=== PATIENT | male | born 1965 | race Caucasian/White ===

== ENCOUNTER 2018-08-08 21:24 | Emergency (ER) | payer OTHER ==
[2018-08-08] MEDS ORDERED: KETOROLAC 30 MG/ML INJ ONE (22:15)
[2018-08-08] MEDS ORDERED: CLINDAMYCIN 900MG/D5W 900 MG/50 ML IVPB IV ONE (22:16)
[2018-08-08] MEDS ORDERED: LIDOCAINE 1% MPF 5 ML VIAL ONE (22:16)
--- NOTE | 2018-08-08 23:25 | ER ---
Nurse's Notes [facility] Name: Markus Foy Age: 52 yrs Sex: Male : 1965 Arrival Date: 08/08/2018 Time: 21:25 Bed 5 Private MD: Diagnosis: Right knee abscess with surrounding cellulitis Presentation: 08/08 21:43 Presenting complaint: Patient states: wound to right knee. pt seen in [facility] ak1 and instructed to come to ER for possible IV antibiotics. Transition of care: patient was not received from another setting of care. Onset of symptoms is unknown. Risk Assessment: Do you want to hurt yourself or someone else? Patient reports no desire to harm self or others. Initial Sepsis Screen: Does the patient meet any 2 criteria? No. Patient's initial sepsis screen is negative. Does the patient have a suspected source of infection? No. Patient's initial sepsis screen is negative. Care prior to arrival: None. 21:43 Method Of Arrival: Ambulatory ak1 21:43 Acuity: ZELDA 3 ak1 Triage Assessment: 21:45 General: Appears in no apparent distress. Behavior is calm, cooperative. ak1 21:47 Pain: Complains of pain in right knee. ak1 Historical: - Allergies: 21:45 No Known Allergies; ak1 - Home Meds: 21:45 None [Active]; ak1 - PMHx: 21:45 Cancer; Schizophrenia; ak1 - PSHx: 21:45 Colostomy; port a cath; Bowel resection; ak1 - Immunization history:: Adult Immunizations unknown. - Social history:: Smoking status: Patient uses tobacco products, smokes one-half pack cigarettes per day. - Ebola Screening: : No symptoms or risks identified at this time. - Family history:: not pertinent. - Hospitalizations: : No recent hospitalization is reported. Screenin:46 Abuse screen: Denies threats or abuse. Denies injuries from another. Nutritional ak1 screening: No deficits noted. Tuberculosis screening: No symptoms or risk factors identified. Fall Risk None identified. Assessment: 21:40 General: Appears in no apparent distress. uncomfortable, Behavior is calm, cooperative. bb Pain: Complains of pain in right knee. Neuro: Level of Consciousness is awake, alert, obeys commands, Oriented to person, place, time, situation. Cardiovascular: Heart tones S1 S2 present Capillary refill < 3 seconds Patient's skin is warm and dry. Pulses are all present. Edema is absent. Respiratory: Respiratory effort is even, unlabored, Respiratory pattern is regular. GI: No deficits noted. No signs and/or symptoms were reported involving the gastrointestinal system. Derm: Skin is pink, warm \T\ dry. Wound noted right knee. Musculoskeletal: Circulation, motion, and sensation intact. Reports pain in right knee right knee with area of pus and surrounding erythema. 22:54 Reassessment: No changes from previously documented assessment. Patient is alert, bb oriented x 3, equal unlabored respirations, skin warm/dry/pink. pt awaiting ED provider for I\T\D of right knee. 23:43 Reassessment: Patient and/or family updated on plan of care and expected duration. Pain bb level reassessed. Patient is alert, oriented x 3, equal unlabored respirations, skin warm/dry/pink. bandage to right knee is clean, dry and intact, pt verbalized understanding of and agrees to plan of care discharge instructions given pt ambulated with steady gait to exit. Vital Signs: 21:45 BP 159 / 102; Pulse 90; Resp 18; Temp 98.1; Pulse Ox 99% on R/A; Weight 79.38 kg (R); ak1 Height 6 ft. 0 in. (182.88 cm) (R); Pain 7/10; 22:55 BP 129 / 71; Pulse 89; Resp 16 S; Pulse Ox 100% on R/A; bb 23:41 BP 134 / 68; Pulse 91; Resp 16; Temp 98.1; Pulse Ox 100% on R/A; mw2 21:45 Body Mass Index 23.73 (79.38 kg, 182.88 cm) ak1 ED Course: 21:25 Patient arrived in ED. ds1 21:44 Triage completed. ak1 21:45 Arm band placed on Patient placed in an exam room, on a stretcher, on pulse oximetry, ak1 Patient notified of wait time. 21:46 Patient has correct armband on for positive identification. Placed in gown. Bed in low ak1 position. Call light in reach. Side rails up X 1. Pulse ox on. NIBP on. Door closed. Warm blanket given. 21:47 Jose Brown MD is Attending Physician. wa 22:00 Inserted saline lock: 20 gauge in right forearm, using aseptic technique. Blood bb collected. 22:45 Renuka Sanchez, RN is Primary Nurse. bb 23:20 Assist provider with I \T\ D: of an abscess on right knee Set up I\T\D tray. Performed by tl 1 Jose Brown MD Dressing with Neosporin and 4X4s, tegaderm. 23:23 Kimberlee Burgess MD is Referral Physician. wa 23:42 IV discontinued, intact, bleeding controlled, No redness/swelling at site. Pressure tl1 dressing applied. Administered Medications: 22:20 Drug: Clindamycin 900 mg Route: IVPB; Infused Over: 30 mins; Site: right antecubital; tl1 22:42 Follow up: IV Status: Completed infusion tl1 22:20 Drug: TORadol 30 mg Route: IVP; Infused Over: 2 mins; Site: right antecubital; tl1 23:46 Follow up: Response: No adverse reaction bb Outcome: 23:24 Discharge ordered by . wa 23:46 Discharged to home ambulatory. bb 23:46 Condition: stable 23:46 Discharge instructions given to patient, Instructed on discharge instructions, follow up and referral plans. medication usage, Demonstrated understanding of instructions, follow-up care, medications, Prescriptions given X 1. 23:46 Patient left the ED. bb Signatures: Alley Saenz ds1 Renuka Sanchez, RN RN Eun Heaton RN RN tl1 Willow Barrett RN RN ak1 Jose Brown MD MD ok Amalia Avila 2
--- NOTE | 2018-08-08 23:25 | EDPHYS ---
Physician Documentation [facility] Name: Markus Foy Age: 52 yrs Sex: Male : 1965 Arrival Date: 08/08/2018 Time: 21:25 Bed 5 Private MD: ED Physician Jose Brown HPI: 08/08 23:19 This 52 yrs old Male presents to ER via Ambulatory with complaints of Knee wa Infection - Leg. 23:19 The patient presents with an abscess of the right knee, The patient presents with wa cellulitis of the right knee. Description: The affected area is small, localized, erythematous. Onset: The symptoms/episode began/occurred 3 day(s) ago. Possible cause(s): unknown. Associated signs and symptoms: Pertinent positives: erythema, pain, Pertinent negatives: fever. Modifying factors: the symptoms are alleviated by nothing, the symptoms are aggravated by movement, walking. Severity of symptoms: At their worst the symptoms were moderate, in the emergency department the symptoms are unchanged. The patient has not experienced similar symptoms in the past. The patient has not recently seen a physician. states noted a bump on right knee. picked at it. now swollen and tender. Historical: - Allergies: 21:45 No Known Allergies; ak1 - Home Meds: 21:45 None [Active]; ak1 - PMHx: 21:45 Cancer; Schizophrenia; ak1 - PSHx: 21:45 Colostomy; port a cath; Bowel resection; ak1 - Immunization history:: Adult Immunizations unknown. - Social history:: Smoking status: Patient uses tobacco products, smokes one-half pack cigarettes per day. - Ebola Screening: : No symptoms or risks identified at this time. - Family history:: not pertinent. - Hospitalizations: : No recent hospitalization is reported. ROS: 23:20 Constitutional: Negative for fever, chills, and weight loss, Eyes: Negative for injury, wa pain, redness, and discharge, ENT: Negative for injury, pain, and discharge, Neck: Negative for injury, pain, and swelling, Cardiovascular: Negative for chest pain, palpitations, and edema, Respiratory: Negative for shortness of breath, cough, wheezing, and pleuritic chest pain, Abdomen/GI: Negative for abdominal pain, nausea, vomiting, diarrhea, and constipation, Back: Negative for injury and pain, : Negative for injury, bleeding, discharge, and swelling, MS/Extremity: Negative for injury and deformity, Neuro: Negative for headache, weakness, numbness, tingling, and seizure, Psych: Negative for depression, anxiety, suicide ideation, homicidal ideation, and hallucinations. 23:20 Skin: Positive for abscess, cellulitis, of the right knee. 23:20 All other systems are negative. Exam: 23:21 Constitutional: This is a well developed, well nourished patient who is awake, alert, wa and in no acute distress. Head/Face: Normocephalic, atraumatic. Eyes: Pupils equal round and reactive to light, extra-ocular motions intact. Lids and lashes normal. Conjunctiva and sclera are non-icteric and not injected. Cornea within normal limits. Periorbital areas with no swelling, redness, or edema. ENT: Nares patent. No nasal discharge, no septal abnormalities noted. Tympanic membranes are normal and external auditory canals are clear. Oropharynx with no redness, swelling, or masses, exudates, or evidence of obstruction, uvula midline. Mucous membranes moist. Neck: Trachea midline, no thyromegaly or masses palpated, and no cervical lymphadenopathy. Supple, full range of motion without nuchal rigidity, or vertebral point tenderness. No Meningismus. Chest/axilla: Normal chest wall appearance and motion. Nontender with no deformity. No lesions are appreciated. Cardiovascular: Regular rate and rhythm with a normal S1 and S2. No gallops, murmurs, or rubs. Normal PMI, no JVD. No pulse deficits. Respiratory: Lungs have equal breath sounds bilaterally, clear to auscultation and percussion. No rales, rhonchi or wheezes noted. No increased work of breathing, no retractions or nasal flaring. Abdomen/GI: Soft, non-tender, with normal bowel sounds. No distension or tympany. No guarding or rebound. No evidence of tenderness throughout. Back: No spinal tenderness. No costovertebral tenderness. Full range of motion. MS/ Extremity: Pulses equal, no cyanosis. Neurovascular intact. Full, normal range of motion. Neuro: Awake and alert, GCS 15, oriented to person, place, time, and situation. Cranial nerves II-XII grossly intact. Motor strength 5/5 in all extremities. Sensory grossly intact. Cerebellar exam normal. Normal gait. Psych: Awake, alert, with orientation to person, place and time. Behavior, mood, and affect are within normal limits. 23:21 Skin: abscess, that is small, of the frontal right knee, cellulitis, that is minimal. Vital Signs: 21:45 BP 159 / 102; Pulse 90; Resp 18; Temp 98.1; Pulse Ox 99% on R/A; Weight 79.38 kg (R); ak1 Height 6 ft. 0 in. (182.88 cm) (R); Pain 7/10; 22:55 BP 129 / 71; Pulse 89; Resp 16 S; Pulse Ox 100% on R/A; bb 23:41 BP 134 / 68; Pulse 91; Resp 16; Temp 98.1; Pulse Ox 100% on R/A; mw2 21:45 Body Mass Index 23.73 (79.38 kg, 182.88 cm) ak1 Procedures: 23:22 I \T\ D: Incision and drainage was performed for an abscess of the right right knee wa Prepped with Betadine, Anesthetized with 2 ml's 1% Lidocaine. Incised with #11 blade. Drained small amount purulent fluid. Packed with none. Dressing: sterile 4x4 gauze, the patient tolerated the procedure well. MDM: 21:46 Patient medically screened. wv 23:21 Differential diagnosis: abscess, cellulitis, insect bite. Data reviewed: vital signs, wv nurses notes. 23:22 ED course: received IV clinda. I\T\D done. scant drained out. tolerated well. will d/c wa with doxy and close f/u. 08/08 22:03 Order name: IV Saline Lock; Complete Time: 22:06 wv 08/08 22:03 Order name: I\T\D Setup; Complete Time: 22:42 wv Administered Medications: 22:20 Drug: Clindamycin 900 mg Route: IVPB; Infused Over: 30 mins; Site: right antecubital; tl1 22:42 Follow up: IV Status: Completed infusion tl1 22:20 Drug: TORadol 30 mg Route: IVP; Infused Over: 2 mins; Site: right antecubital; tl1 23:46 Follow up: Response: No adverse reaction bb Disposition: 08/08/18 23:24 Discharged to Home. Impression: Right knee abscess with surrounding cellulitis. - Condition is Stable. - Discharge Instructions: Skin Abscess, [id number]. - Prescriptions for Doxycycline Hyclate 100 mg Oral Tablet - take 1 tablet by ORAL route every 12 hours; 20 tablet. - Medication Reconciliation Form, Thank You Letter, Antibiotic Education, Prescription Opioid Use form. - Follow up: Kimberlee Burgess MD; When: 1 - 2 days; Reason: Recheck today's complaints. - Problem is new. - Symptoms have improved. - Notes: keep clean. take the antibiotic as prescribed. see the primary doctor within 48 hours for wound check. do not pick at the wound Signatures: Renuka Sanchez, RN RN bb Eun Vee RN RN tl1 Willow Barrett RN RN ak1 Jose Brown MD MD wa Corrections: (The following items were deleted from the chart) 23:46 23:24 08/08/2018 23:24 Discharged to Home. Impression: Right knee abscess with bb surrounding cellulitis. Condition is Stable. Forms are Medication Reconciliation Form, Thank You Letter, Antibiotic Education, Prescription Opioid Use. Follow up: Kimberlee Burgess; When: 1 - 2 days; Reason: Recheck today's complaints. Problem is new. Symptoms have improved. wa
[2018-08-09 00:35] VITALS: TEMP 98.1
[2018-08-09 00:36] VITALS: O2SAT 100
[2018-08-09 00:38] VITALS: BP 134/68
== END 2018-08-08 23:46 | disposition home or self-care (01) ==
LOC: ER 21:24
PROC: 0J9N0ZZ Drainage of Right Lower Leg Subcutaneous Tissue and Fascia, Open Approach (ICD-10-PCS; principal; 2018-08-08)
DX: L02.415 Cutaneous abscess of right lower limb (principal); L03.115 Cellulitis of right lower limb; F17.210 Nicotine dependence, cigarettes, uncomplicated
CPT/HCPCS: 96365; 96375; 99284

== ENCOUNTER 2019-03-30 12:38 | Inpatient (IN) | payer OTHER ==
[2019-03-30 13:10] LABS: Protime INR 1.01
[2019-03-30 13:11] LABS: Absolute Lymphocytes (CBC) 1.2 K/uL (0.7-4.9); Basophils % 0.5 % (0-1.3); Hematocrit 42.7 % (39.6-49.0); Lymphocytes % 17.3 % (15.3-44.8); MPV 8.3 fL (7.6-11.3); RBC Red Blood Cell Count 4.55 M/uL (4.33-5.43)
--- NOTE | 2019-03-30 13:20 | EDPHYS ---
Physician Documentation [facility] Name: Markus Foy Age: 53 yrs Sex: Male : 1965 Arrival Date: 03/30/2019 Time: 12:43 Bed 4 Private MD: ED Physician Vlad Neumann HPI: 03/30 12:55 This 53 yrs old Male presents to ER via EMS with complaints of Heat Exposure, johanna Chest Pain. 12:55 The patient or guardian reports chest pain that is located primarily in the substernal johanna area, anterior chest wall. Onset: just prior to arrival, today. The pain radiates to Associated signs and symptoms: The patient has no apparent associated signs or symptoms. The chest pain is described as aching. Duration: The patient or guardian reports multiple episodes. Modifying factors: The symptoms are alleviated by nothing. the symptoms are aggravated by nothing. Severity of pain: At its worst the pain was mild moderate in the emergency department the pain is unchanged. The patient has not experienced similar symptoms in the past. Historical: - Allergies: 12:47 No Known Drug Allergies; ph - PMHx: 12:47 Cancer; Schizophrenia; ph - PSHx: 12:47 Colostomy; port a cath; Bowel resection; ph - Immunization history:: Adult Immunizations unknown. - Social history:: Smoking status: Patient uses tobacco products, smokes one-half pack cigarettes per day, Patient uses alcohol, street drugs, cocaine, marijuana, last used cocaine 4 days ago. - Ebola Screening: : No symptoms or risks identified at this time. - Family history:: not pertinent. ROS: 12:55 Constitutional: Negative for fever, chills, and weight loss, Eyes: Negative for injury, johanna pain, redness, and discharge, ENT: Negative for injury, pain, and discharge, Neck: Negative for injury, pain, and swelling, Respiratory: Negative for shortness of breath, cough, wheezing, and pleuritic chest pain, Abdomen/GI: Negative for abdominal pain, nausea, vomiting, diarrhea, and constipation, Back: Negative for injury and pain, : Negative for injury, bleeding, discharge, and swelling, MS/Extremity: Negative for injury and deformity, Skin: Negative for injury, rash, and discoloration, Neuro: Negative for headache, weakness, numbness, tingling, and seizure, Psych: Negative for depression, anxiety, suicide ideation, homicidal ideation, and hallucinations, Allergy/Immunology: Negative for hives, rash, and allergies, Endocrine: Negative for neck swelling, polydipsia, polyuria, polyphagia, and marked weight changes, Hematologic/Lymphatic: Negative for swollen nodes, abnormal bleeding, and unusual bruising. 12:55 Cardiovascular: Positive for Exam: 12:55 Constitutional: This is a well developed, well nourished patient who is awake, alert, johanna and in no acute distress. Head/Face: Normocephalic, atraumatic. Eyes: Pupils equal round and reactive to light, extra-ocular motions intact. Lids and lashes normal. Conjunctiva and sclera are non-icteric and not injected. Cornea within normal limits. Periorbital areas with no swelling, redness, or edema. ENT: Nares patent. No nasal discharge, no septal abnormalities noted. Tympanic membranes are normal and external auditory canals are clear. Oropharynx with no redness, swelling, or masses, exudates, or evidence of obstruction, uvula midline. Mucous membranes moist. Neck: Trachea midline, no thyromegaly or masses palpated, and no cervical lymphadenopathy. Supple, full range of motion without nuchal rigidity, or vertebral point tenderness. No Meningismus. Chest/axilla: Normal chest wall appearance and motion. Nontender with no deformity. No lesions are appreciated. Cardiovascular: Regular rate and rhythm with a normal S1 and S2. No gallops, murmurs, or rubs. Normal PMI, no JVD. No pulse deficits. Respiratory: Lungs have equal breath sounds bilaterally, clear to auscultation and percussion. No rales, rhonchi or wheezes noted. No increased work of breathing, no retractions or nasal flaring. Abdomen/GI: Soft, non-tender, with normal bowel sounds. No distension or tympany. No guarding or rebound. No evidence of tenderness throughout. Back: No spinal tenderness. No costovertebral tenderness. Full range of motion. Male : Normal genitalia with no discharge or lesions. Skin: Warm, dry with normal turgor. Normal color with no rashes, no lesions, and no evidence of cellulitis. 12:55 Musculoskeletal/extremity: DVT Exam: No signs of deep vein thrombosis. no pain, no swelling, no tenderness, negative Homans' sign noted on exam, no appreciated bluish discoloration, no erythema, no increased warmth. Vital Signs: 12:46 BP 149 / 105; Pulse 83; Resp 18; Temp 98.6; Pulse Ox 98% on R/A; Weight 82.55 kg; ph Height 6 ft. 0 in. (182.88 cm); 13:30 BP 146 / 104; Pulse 73 MON; Resp 16; Pulse Ox 100% on R/A; sv 14:01 BP 154 / 100; Pulse 71; Resp 21; Pulse Ox 100% on R/A; sv 14:30 BP 129 / 83; Pulse 74; Resp 20; Pulse Ox 100% on R/A; sv 15:00 BP 139 / 92; Pulse 86; Resp 17 S; Pulse Ox 98% on R/A; ca1 15:15 BP 126 / 79; Pulse 93; Resp 19; Pulse Ox 100% on R/A; sv 12:46 Body Mass Index 24.68 (82.55 kg, 182.88 cm) ph 13:30 Sinus arrythmia sv 14:01 Sinus arrythmia sv 14:30 Sinus arrythmia sv 15:15 Sinus arrythmia sv MDM: 12:47 Patient medically screened. [facility] 12:57 Data reviewed: vital signs, nurses notes, lab test result(s), EKG, radiologic studies, [facility] CT scan, plain films. 03/30 12:48 Order name: Basic Metabolic Panel ph 03/30 12:48 Order name: CBC with Diff; Complete Time: 13:16 ph 03/30 12:48 Order name: LFT's ph 03/30 12:48 Order name: Magnesium ph 03/30 12:48 Order name: NT PRO-BNP ph 03/30 12:48 Order name: PT-INR; Complete Time: 13:16 ph 03/30 12:48 Order name: Troponin (emerg Dept Use Only) ph 03/30 12:48 Order name: XRAY Chest (1 view) ph 03/30 12:48 Order name: EKG; Complete Time: 12:49 ph 03/30 12:55 Order name: UDS johanna 03/30 13:17 Order name: Urine Dipstick--Ancillary (enter results) eb 03/30 14:06 Order name: Echo with Doppler EDMS 03/30 12:48 Order name: Cardiac monitoring; Complete Time: 12:52 ph 03/30 12:48 Order name: EKG - Nurse/Tech; Complete Time: 13:13 ph 03/30 12:48 Order name: IV Saline Lock; Complete Time: 12:52 ph 03/30 12:48 Order name: Labs collected and sent; Complete Time: 12:52 ph 03/30 12:48 Order name: O2 Per Protocol; Complete Time: 12:52 ph 03/30 12:48 Order name: O2 Sat Monitoring; Complete Time: 12:52 ph Administered Medications: 14:31 Drug: Aspirin Chewable Tablet 324 mg Route: PO; ca1 14:49 Follow up: Response: No adverse reaction ca1 14:33 Drug: Lovenox 1 mg/kg Route: Sub-Q; Site: right lower abdomen; ca1 14:49 Follow up: Response: No adverse reaction ca1 Disposition: 03/30/19 13:19 Hospitalization ordered by Cathryn Acuña for Observation. Preliminary diagnosis are Other chest pain, Abuse of non-psychoactive substances, Cocaine abuse, Adverse effect of amphetamines. - Bed requested for Telemetry/MedSurg (observation). - Status is Observation. iw - Condition is Fair. - Problem is new. - Symptoms have improved. UTI on Admission? No Signatures: Dispatcher [employer] EDMS Vlad Neumann MD MD cha Williams, Irene, RN RN Neisha Astudillo RN RN Ruthie Mosher Cheryl, RN RN ca1 Corrections: (The following items were deleted from the chart) 14:07 13:19 Hospitalization Ordered by Cathryn Acuña MD for Observation. Preliminary diagnosis eb is Other chest pain; Abuse of non-psychoactive substances; Cocaine abuse; Adverse effect of amphetamines. Bed requested for Telemetry/MedSurg (observation). Status is Observation. Condition is Fair. Problem is new. Symptoms have improved. UTI on Admission? No. johanna 15:10 14:07 03/30/2019 13:19 Hospitalization Ordered by Cathryn Acuña MD for Observation. iw Preliminary diagnosis is Other chest pain; Abuse of non-psychoactive substances; Cocaine abuse; Adverse effect of amphetamines. Bed requested for Telemetry/MedSurg (observation). Status is Observation. Condition is Fair. Problem is new. Symptoms have improved. UTI on Admission? No. eb
--- NOTE | 2019-03-30 13:20 | ER ---
Nurse's Notes [facility] Name: Markus Foy Age: 53 yrs Sex: Male : 1965 Arrival Date: 03/30/2019 Time: 12:43 Bed 4 Private MD: Diagnosis: Other chest pain;Abuse of non-psychoactive substances;Cocaine abuse;Adverse effect of amphetamines Presentation: 03/30 12:43 Presenting complaint: EMS states: Was working outside and began to have mid sternal ph chest pain, also c/o L arm pain but states that has been occurring for 3-4 weeks, had EKG 3 weeks ago that was normal, HR 49-85 bpm, [id number], denies SOB N/V. Transition of care: patient was not received from another setting of care. Onset of symptoms was March 30, 2019. Risk Assessment: Do you want to hurt yourself or someone else? Patient reports no desire to harm self or others. Initial Sepsis Screen: Does the patient meet any 2 criteria? No. Patient's initial sepsis screen is negative. Does the patient have a suspected source of infection? No. Patient's initial sepsis screen is negative. Care prior to arrival: None. 12:43 Method Of Arrival: EMS: [facility] 12:43 Acuity: ZELDA 3 ph Triage Assessment: 12:47 General: Appears in no apparent distress. comfortable, slender, Behavior is ph cooperative, anxious, Denies fever, feeling ill. Pain: Complains of pain in left arm. 12:49 Neuro: Level of Consciousness is awake, alert, obeys commands, Oriented to person, ph place, time, situation. Cardiovascular: Reports chest pain, Denies nausea, shortness of breath, Capillary refill < 3 seconds in bilateral fingers Patient's skin is warm and dry. Rhythm is sinus arrythmia Chest pain is located in left anterior chest wall substernal area. Respiratory: Airway is patent Respiratory effort is even, unlabored, Respiratory pattern is regular, symmetrical. GI: No signs and/or symptoms were reported involving the gastrointestinal system. Colostomy site is clean and dry. Ostomy appliance is intact. Derm: Skin is intact, Skin is pink, warm \T\ dry. Musculoskeletal: Circulation, motion, and sensation intact. Range of motion: intact in all extremities. Historical: - Allergies: 12:47 No Known Drug Allergies; ph - PMHx: 12:47 Cancer; Schizophrenia; ph - PSHx: 12:47 Colostomy; port a cath; Bowel resection; ph - Immunization history:: Adult Immunizations unknown. - Social history:: Smoking status: Patient uses tobacco products, smokes one-half pack cigarettes per day, Patient uses alcohol, street drugs, cocaine, marijuana, last used cocaine 4 days ago. - Ebola Screening: : No symptoms or risks identified at this time. - Family history:: not pertinent. Screenin:47 Abuse screen: Denies threats or abuse. Denies injuries from another. Nutritional ph screening: No deficits noted. Tuberculosis screening: No symptoms or risk factors identified. Fall Risk None identified. Assessment: 12:51 General: see triage assessment. ph 14:30 Reassessment: Patient appears in no apparent distress at this time. Patient is alert, ca1 oriented x 3, equal unlabored respirations, skin warm/dry/pink. Ultrasound at bedside. 15:00 Reassessment: Patient appears in no apparent distress at this time. Patient and/or ca1 family updated on plan of care and expected duration. Pain level reassessed. Patient is alert, oriented x 3, equal unlabored respirations, skin warm/dry/pink. Vital Signs: 12:46 BP 149 / 105; Pulse 83; Resp 18; Temp 98.6; Pulse Ox 98% on R/A; Weight 82.55 kg; ph Height 6 ft. 0 in. (182.88 cm); 13:30 BP 146 / 104; Pulse 73 MON; Resp 16; Pulse Ox 100% on R/A; sv 14:01 BP 154 / 100; Pulse 71; Resp 21; Pulse Ox 100% on R/A; sv 14:30 BP 129 / 83; Pulse 74; Resp 20; Pulse Ox 100% on R/A; sv 15:00 BP 139 / 92; Pulse 86; Resp 17 S; Pulse Ox 98% on R/A; ca1 15:15 BP 126 / 79; Pulse 93; Resp 19; Pulse Ox 100% on R/A; sv 12:46 Body Mass Index 24.68 (82.55 kg, 182.88 cm) ph 13:30 Sinus arrythmia sv 14:01 Sinus arrythmia sv 14:30 Sinus arrythmia sv 15:15 Sinus arrythmia sv ED Course: 12:43 Patient arrived in ED. ss 12:43 Neisha Astudillo, RN is Primary Nurse. ph 12:45 Triage completed. ph 12:45 Initial lab(s) drawn, by me, sent to lab. Inserted saline lock: 20 gauge in right sv antecubital area, using aseptic technique. Blood collected. Flushed right antecubital with 5 ml normal saline. 12:47 Vlad Neumann MD is Attending Physician. johanna 12:48 Arm band placed on Patient placed in an exam room, on a stretcher, on case monitor, ph on pulse oximetry. 12:52 Patient has correct armband on for positive identification. Placed in gown. Bed in low ph position. Call light in reach. Side rails up X 1. phototypesetting equipment monitor on. Pulse ox on. NIBP on. Door closed. Noise minimized. Warm blanket given. Head of bed elevated. 13:05 X-ray completed. Portable x-ray completed in exam room. Patient tolerated procedure ls3 well. 13:09 XRAY Chest (1 view) In Process Unspecified. EDMS 13:13 EKG done, by generation technologist. reviewed by Vlad Neumann MD. at1 13:14 UDS Sent. ca1 13:17 Cathryn Acuña MD is Hospitalizing Provider. johanna 14:59 No provider procedures requiring assistance completed. Patient admitted, IV remains in ca1 place. Administered Medications: 14:31 Drug: Aspirin Chewable Tablet 324 mg Route: PO; ca1 14:49 Follow up: Response: No adverse reaction ca1 14:33 Drug: Lovenox 1 mg/kg Route: Sub-Q; Site: right lower abdomen; ca1 14:49 Follow up: Response: No adverse reaction ca1 Outcome: 13:19 Decision to Hospitalize by Provider. johanna 14:59 Admitted to Med/surg accompanied by tech, via wheelchair, room 231, with chart, Report ca1 called to ALFREDITO Mendoza 14:59 Condition: stable 14:59 Instructed on the need for admit. 15:10 Patient left the ED. iw Signatures: Dispatcher [employer] EDMS Ursula Dan RN RN Vlad Neumann MD MD cha Williams, Irene, RN RN Pari Em RN RN Capri Emery, cisco consultant EKG Tat1 Neisha Astudillo RN RN ph Megan Fajardo ls3 Elsie Alvarado, RN RN ca1
--- NOTE | 2019-03-30 13:22 | RAD REPORT ---
EXAM DESCRIPTION: Yao Single View03/30/2019 1:06 pm CLINICAL HISTORY: Chest pain COMPARISON: 2017 FINDINGS: The entire lateral costophrenic sulci are not included in the field view and are not eval uated. Visualize lungs appear clear of acute infiltrate. Central venous line has its tip in the superior vena cava. The heart is normal size
[2019-03-30 13:28] LABS: ALT/SGPT 29 U/L (12-78); AST/SGOT 25 U/L (15-37); Albumin 3.9 g/dL (3.4-5.0); Alkaline Phosphatase 97 U/L (45-117); BUN Blood Urea Nitrogen 17 mg/dL (7-18); Bicarbonate 30 mmol/L (21-32); Bilirubin Direct 0.1 mg/dL (0-0.2); Bilirubin Total 0.5 mg/dL (0.2-1.0); Glucose Level 105 mg/dL (74-106); Protein, Total 7.4 g/dL (6.4-8.2); Sodium Level 140 mmol/L (136-145)
[2019-03-30 13:29] LABS: Magnesium 2.2 mg/dL (1.8-2.4); NT PRO-BNP 38 pg/mL (<125); Troponin (Emerg Dept Use Only) < 0.02 ng/mL (0.0-0.045)
[2019-03-30 13:31] LABS: Barbiturates NEGATIVE (NEGATIVE); Benzodiazepines NEGATIVE (NEGATIVE); Cocaine POSITIVE (NEGATIVE); METHAMPHETAM POSITIVE (NEGATIVE); Methadone NEGATIVE (NEGATIVE); Opiates NEGATIVE (NEGATIVE); Phencyclidine NEGATIVE (NEGATIVE); THC Cannibis POSITIVE (NEGATIVE)
--- NOTE | 2019-03-30 13:32 | EKG ---
Test Date: 2019-03-30 Test Time: 13:07:32 Inserter Operator: MAXI MEASUREMENT RESULTS: Intervals: Rate: 77 WI: 160 QRSD: 88 QT: 382 QTc: 432 [place]: P: 76 WI: 160 QRS: 67 T: 74 INTERPRETIVE STATEMENTS: Sinus rhythm with occasional premature ventricular complexes Otherwise normal ECG Compared to ECG 01/31/2015 23:42:07 No significant changes Electronically Signed On 03-30-19 13:31:29 CDT by Bj Henry
[2019-03-30 13:49] LABS: Urine Blood TRACE (NEG); Urine Glucose NEGATIVE (NEG); Urine Protein NEGATIVE (NEG); Urine Specific Gravity 1.025 (1.005-1.030)
[2019-03-30] MEDS ORDERED: ENOXAPARIN 80 MG/0.8 ML SQ ONE (14:46)
[2019-03-30] MEDS ORDERED: ASPIRIN 81 MG CHEWABLE TABLET ONE (14:46)
[2019-03-30] MEDS ORDERED: NITROGLYCERIN 0.4 MG/TAB SL PRN (15:00)
[2019-03-30 15:34] VITALS: BMI 24.7
[2019-03-30] MEDS ORDERED: ENOXAPARIN 40 MG/0.4 ML SQ SCH (16:00)
--- NOTE | 2019-03-30 16:56 | P.HP ---
Certification for Inpatient Patient admitted to: Observation With expected LOS: <2 Midnights Practitioner: I am a practitioner with admitting privileges, knowledge of patient current condition, hospital course, and medical plan of care. Services: Services provided to patient in accordance with Admission requirements found in Title 42 Section 412.3 of the Code of Federal Regulations Patient History Date of Service: 03/30/19 Reason for admission: Chest pain History of Present Illness: This is a 53-year-old male with past medical history of colon cancer and schizophrenia along with cocaine, amphetamine and marijuana usage admitted for chest pain. At the time of my exam, there is no family at bedside and patient was lethargic and sleepy, therefore unable to provide me with history. History was obtained from chart review. Patient started with sharp substernal chest pain without radiation. Was brought to the ER. In the ER, his blood pressure was 149/105, heart rate of 83, respirations of 18 , afebrile at 98.6 and 90% on room air. BMI of 24. His labs were unremarkable. Troponin was negative x1. An EKG was without any acute changes. His urine drug screen was positive for amphetamines, marijuana, cocaine. His chest x-ray was without any acute abnormalities. He was referred for admission for chest pain rule out due to his cocaine usage history. At the time of my exam, patient was lethargic/sleepy, arousable but unable to really provide history or answer any questions. Allergies No Known Drug Allergies Allergy (Verified 03/30/19 15:47) Unknown Home medications list reviewed: Yes Home Medications: NK [No Home Meds] 03/30/19 - Past Medical/Surgical History Diabetic: No -: Colon CA -: schizophrenia -: colostomy/bowel resection -: port a cath insertion - Social History Smoking Status: Current every day smoker Alcohol use: Yes CD- Drugs: Yes Caffeine use: Yes Review of Systems 10-point ROS is otherwise unremarkable Physical Examination - Vital Signs Temperature: 97.6 F Blood Pressure: 132/89 Pulse: 72 Respirations: 18 Pulse Ox (%): 99 - Physical Exam General: In no apparent distress, Other (Sleepy/lethargic, arousable but unable to answer any questions. Looks older than stated age) HEENT: Atraumatic, PERRLA, Mucous membr. moist/pink, EOMI, Sclerae nonicteric Neck: Supple, 2+ carotid pulse no bruit, No LAD, Without JVD or thyroid abnormality Respiratory: Clear to auscultation bilaterally, Normal air movement Cardiovascular: Regular rate/rhythm, Normal S1 S2 Gastrointestinal: Normal bowel sounds, No tenderness Musculoskeletal: No tenderness Integumentary: No rashes Neurological: Normal gait, Normal speech, Normal strength at 5/5 x4 extr, Normal tone, Normal affect - Studies Laboratory Data (last 24 hrs) 03/30/19 12:45: Triglycerides 95, Cholesterol 138, HDL Cholesterol 58, Cholesterol/HDL Ratio 2.38 03/30/19 12:45: PT 11.9, INR 1.01 03/30/19 12:45: WBC 6.7, Hgb 14.6, Hct 42.7, Plt Count 167 03/30/19 12:45: Sodium 140, Potassium 4.0, BUN 17, Creatinine 1.02, Glucose 105 , Magnesium 2.2, Total Bilirubin 0.5, AST 25, ALT 29, Alkaline Phosphatase 97 Assessment and Plan - Problems (Diagnosis) (1) Chest pain Current Visit: Yes Status: Acute Plan: Rule out ACS - risk factors include: Drug usage, current smoking, current cocaine use - we will start chest pain guidelines: Aspirin, Plavix, statin and lisinopril. Avoid metoprolol or other beta-saji due to cocaine usage - echo ordered, pending - cardiology consult, awaiting recommendations - trend troponins Qualifiers: Chest pain type: unspecified Qualified Code(s): R07.9 - Chest pain, unspecified (2) Nicotine dependence Current Visit: Yes Status: Chronic Qualifiers: Nicotine product type: cigarettes Substance use status: uncomplicated Qualified Code(s): F17.210 - Nicotine dependence, cigarettes, uncomplicated (3) Cocaine use disorder Current Visit: Yes Status: Chronic (4) Amphetamine use disorder, moderate, dependence Current Visit: Yes Status: Chronic (5) Marijuana use Current Visit: Yes Status: Chronic (6) Schizophrenia Current Visit: No Status: Chronic Qualifiers: Schizophrenia type: unspecified Qualified Code(s): F20.9 - Schizophrenia, unspecified - Plan DVT prophylaxis: Lovenox GI prophylaxis: None Diet: Heart healthy Disposition: Pending cardiac evaluation. Anticipate discharge in the next 24- 48 hr Discharge Plan: Home Plan to discharge in: 24 Hours - Advance Directives Does patient have a Living Will: No Does patient have a Durable POA for Healthcare: No Time Spent Managing Pts Care (In Minutes): 45
[2019-03-30] MEDS: ATORVASTATIN 80 MG TAB PO SCH (21:12)
[2019-03-31 06:30] LABS: Basophils % 0.7 % (0-1.3); Hematocrit 45.4 % (39.6-49.0); Lymphocytes % 17.6 % (15.3-44.8); MPV 8.1 fL (7.6-11.3); RBC Red Blood Cell Count 4.86 M/uL (4.33-5.43)
[2019-03-31] MEDS ORDERED: ENOXAPARIN 40 MG/0.4 ML SQ SCH (09:00)
[2019-03-31] MEDS: ASPIRIN EC 81 MG TAB PO SCH (09:10)
[2019-03-31] MEDS: LISINOPRIL 10 MG TAB PO SCH (09:10)
[2019-03-31] MEDS: CLOPIDOGREL 75 MG TABLET PO SCH (09:10)
[2019-03-31] MEDS ORDERED: ENOXAPARIN 40 MG/0.4 ML SQ ONE (09:44)
--- NOTE | 2019-03-31 10:00 | P.PN ---
Subjective Date of Service: 03/31/19 (Hospitalist) Chief Complaint: Chest pain, shortness of breath Patient is still complaining of chest discomfort shortness of breath echocardiogram shows right ventricular dilatationpossible pulmonary embolism Review of Systems General: Weakness Respiratory: Shortness of Breath Cardiovascular: Chest Pain Physical Examination - Vital Signs Temperature: 97.8 F Blood Pressure: 115/74 Pulse: 87 Respirations: 20 Pulse Ox (%): 96 - Physical Exam General: Alert, In no apparent distress, Oriented x3 HEENT: Atraumatic Neck: Supple Respiratory: Clear to auscultation bilaterally Cardiovascular: No edema, Regular rate/rhythm, Normal S1 S2 - Studies Laboratory Data (last 24 hrs) 03/30/19 12:45: Triglycerides 95, Cholesterol 138, HDL Cholesterol 58, Cholesterol/HDL Ratio 2.38 03/30/19 12:45: PT 11.9, INR 1.01 03/30/19 12:45: WBC 6.7, Hgb 14.6, Hct 42.7, Plt Count 167 03/30/19 12:45: Sodium 140, Potassium 4.0, BUN 17, Creatinine 1.02, Glucose 105 , Magnesium 2.2, Total Bilirubin 0.5, AST 25, ALT 29, Alkaline Phosphatase 97 Assessment & Plan - Problems (Diagnosis) (1) Pulmonary embolism Current Visit: Yes Status: Acute Plan: Slightly likely that patient has had pulmonary embolus stat CT angiogram change to Lovenox for anticoagulants was vital signs stable oxygenation satisfactory vital signs are stable
--- NOTE | 2019-03-31 10:47 | CON ---
Identifying Information: A 53-year-old man. Chief Complaint: Chest pain. History Of Present Illness: Mr. Foy is a gentleman, who has numerous risk factors for coronary he art disease, came to the hospital with chest pain. Since being here, myocardial infarction was ruled out with serial enzymes. His EKG does not show infarction, injury, or ischemia, but we are suspicio us he may have angina. An echocardiogram had showed evidence of right atrial and right ventricular d ilation, moderate pulmonary hypertension, so we have to at least consider the possibility that he has pulmonary embolus. Mr. Foy has a history of rectal cancer. He has had an AP resection, radiatio n chemotherapy, has a chronic colostomy that cannot be reversed. He does not have any followup with his cancer doctors. He is a heavy cigarette smoker. We know he has peripheral arterial disease, hig hly suspicious, he has coronary heart disease as well. He smokes cigarettes very heavily more than a pack a day, also uses illegal drugs and alcohol in large amounts. He also carries a diagnosis of sc hizophrenia. He told me it has been months since his last time he used any cocaine, but his urine sc reen is positive for cocaine, amphetamines, and marijuana or THC. Physical Examination: Vital Signs: 6 feet tall, 181 pounds. HEENT: Normal. Lungs: Decreased breath sounds in the base. No wheezes, crackles. Heart: Within normal limits. No friction rub or gallop or murmur. Abdomen: Soft. Extremities: Reveal very diminished pulses in his left leg. The right leg has normal pulses. His electrocardiogram shows sinus rhythm, occasional PVCs, otherwise normal. Impression: The patient should have a ventilation perfusion lung scan to rule out pulmonary embolus and he should probably undergo a cardiac cath for diagnostic purposes if there is no evidence of a pu lmonary embolus. If there is a pulmonary embolus, we should consider a nuclear stress test. Of cour se, getting him to stop smoking, get regular followups, stop using cocaine and amphetamines, have chr onic treatment for his peripheral vascular disease, lipid-lowering therapy. His prognosis would impr ove greatly. STEPHAN/MICHAEL Voice ID: [id number] Report ID: [id number]
[2019-03-31 12:13] VITALS: O2SAT 97
--- NOTE | 2019-03-31 13:14 | RAD REPORT ---
EXAM DESCRIPTION: CT - Chest For Pe Angio - 03/31/2019 12:41 pm CLINICAL HISTORY: Chest pain COMPARISON: 2008 TECHNIQUE: Dynamically enhanced axial 3 mm thick images of the chest were obtained during administra tion of <100> mL Isovue 370 IV contrast. Coronal and oblique reconstruction images were generated and reviewed. Exam utilizes a protocol for optimal evaluation of pulmonary arterial tree. Maximum intensity projections 3D imaging was utilized All CT scans are performed using dose optimization technique as appropriate and may include automated exposure control or mA/KV adjustment according to patient size. FINDINGS: Very small amount of thrombus within segmental left lower lobe pulmonary artery measuring 6 x 2 millimeters. No additional pulmonary embolus seen A thoracic aortic aneurysm is not noted. A pleural effusion is not seen. A pericardial effusion is not seen. A lung consolidation is not present. IMPRESSION: Very small amount of left pulmonary embolus
[2019-03-31] MEDS: ENOXAPARIN 80 MG/0.8 ML SQ SCH (21:16)
[2019-03-31] MEDS: ATORVASTATIN 80 MG TAB PO SCH (21:16)
--- NOTE | 2019-04-01 08:45 | P.PN ---
Subjective Date of Service: 04/01/19 Chief Complaint: Pulmonary embolism shortness of breath He is doing much better he still has some discomfort also complains of pain in his left town denies any chest pain on exertion patient is an active smoker Review of Systems Respiratory: Shortness of Breath Physical Examination - Vital Signs Temperature: 98.2 F Blood Pressure: 102/64 Pulse: 66 Respirations: 18 Pulse Ox (%): 99 - Physical Exam General: Alert, In no apparent distress, Oriented x3 Neck: Supple Respiratory: Clear to auscultation bilaterally, Diminished Cardiovascular: No edema, Regular rate/rhythm, Normal S1 S2 Gastrointestinal: Normal bowel sounds, Soft and benign Assessment & Plan - Problems (Diagnosis) (1) Pulmonary embolism Current Visit: Yes Status: Acute Plan: He is doing much better. I suspect that he has COPD patient has a very small blood clot facial echo report is not available according to cardiology's right ventricular dilatation is probably chronic may have underlying primary pulmonary hypertension or secondary will need outpatient workup possible underlying COPD can be discharged home on low-dose prednisone with an inhaler for oral anticoagulants there is no evidence of cardiac ischemia as per EKG changes troponins are also negative will discuss with cardiology regarding further cardiac workup and the possibility of discharge Qualifiers: Chronicity: acute Acute cor pulmonale presence: with acute cor pulmonale
[2019-04-01] MEDS ORDERED: predniSONE 20 MG TAB PO SCH (09:00)
[2019-04-01] MEDS ORDERED: DULERA 200/5 (MOMETASONE/FORMOTEROL) INHALER IH SCH (09:00)
[2019-04-01] MEDS: ENOXAPARIN 80 MG/0.8 ML SQ SCH (09:07)
[2019-04-01] MEDS: ASPIRIN EC 81 MG TAB PO SCH (09:08)
[2019-04-01] MEDS: CLOPIDOGREL 75 MG TABLET PO SCH (09:08)
[2019-04-01] MEDS: LISINOPRIL 10 MG TAB PO SCH (09:08)
--- NOTE | 2019-04-01 10:47 | P.DS ---
Admission Date: 03/31/19 Discharge Date: 04/01/19 Discharge Condition: FAIR Reason for Admission: Pulmonary embolism shortness of breath - Problems (1) Pulmonary embolism Current Visit: Yes Status: Acute Qualifiers: Chronicity: acute Acute cor pulmonale presence: with acute cor pulmonale Brief History of Present Illness: Patient is 53 years of age admitted with shortness of breath chest discomfort Hospital Course: He is an active drug abuser was found to have pulmonary hypertension with right- sided cor pulmonale very small pulmonary embolus on the CT scan which I doubt is causing his right ventricular dilatation patient's condition improving probably has underlying COPD and will need outpatient pulmonary function testing in the meanwhile he will be discharged home on prednisone and broncho I have advised him about possible lifelong anticoagulation Vital Signs/Physical Exam: Temp Pulse Resp BP Pulse Ox 98.2 F 66 18 102/64 99 04/01/19 08:45 04/01/19 09:08 04/01/19 08:45 04/01/19 09:08 04/01/19 08:45 Laboratory Data at Discharge: WBC 5.8 K/uL (4.3-10.9) 03/31/19 06:16 Hgb 15.6 g/dL (13.6-17.9) 03/31/19 06:16 Hct 45.4 % (39.6-49.0) 03/31/19 06:16 Plt Count 166 K/uL (152-406) 03/31/19 06:16 PT 11.9 SECONDS (9.5-12.5) 03/30/19 12:45 INR 1.01 03/30/19 12:45 Sodium 140 mmol/L (136-145) 03/30/19 12:45 Potassium 4.0 mmol/L (3.5-5.1) 03/30/19 12:45 BUN 17 mg/dL (7-18) 03/30/19 12:45 Creatinine 1.02 mg/dL (0.55-1.3) 03/30/19 12:45 Glucose 105 mg/dL (74-106) 03/30/19 12:45 Magnesium 2.2 mg/dL (1.8-2.4) 03/30/19 12:45 Total Bilirubin 0.5 mg/dL (0.2-1.0) 03/30/19 12:45 AST 25 U/L (15-37) 03/30/19 12:45 ALT 29 U/L (12-78) 03/30/19 12:45 Alkaline Phosphatase 97 U/L (45-117) 03/30/19 12:45 Troponin I < 0.02 ng/mL (0.0-0.045) 03/31/19 06:13 Triglycerides 95 mg/dL (<150) 03/30/19 12:45 Cholesterol 138 mg/dL (<200) 03/30/19 12:45 HDL Cholesterol 58 mg/dL (40-60) 03/30/19 12:45 Cholesterol/HDL Ratio 2.38 03/30/19 12:45 Home Medications: Rivaroxaban [Xarelto] 20 mg PO DAILY 30 Days #30 tab 04/25/18 Rivaroxaban [Xarelto] 15 mg PO BID 30 Days #60 tablet 04/01/19 predniSONE [Deltasone*] 10 mg PO BID #20 tab 04/01/19 New Medications: predniSONE [Deltasone*] 10 mg PO BID #20 tab Rivaroxaban [Xarelto] 20 mg PO DAILY 30 Days #30 tab Rivaroxaban [Xarelto] 15 mg PO BID 30 Days #60 tablet Patient Discharge Instructions: Patient to take Xarelto 15 mg twice a day for 3 weeks then 20 mg once a day he needs to call my office is any problem obtaining his medications also please verified with the pharmacy that his Xarelto is covered prior to discharge Diet: Regular Activity: Ad ricci Followup: Jose Brower MD [ACTIVE - CAN ADMIT] - 1-2 Weeks
[2019-04-01 12:53] VITALS: BP 110/69; TEMP 97.6
--- NOTE | 2019-04-02 07:45 | ECHO ---
HEIGHT: 6 ft 0 in WEIGHT: 181 lb 15.866 oz DATE OF STUDY: 03/30/[address]: Jose Brower MD 2-DIMENSIONAL: YES M.MODE: YES DOPPLER: YES COLOR FLOW: YES TDS: YES PORTABLE: NO DEFINITY: NO BUBBLE STUDY: NO DIAGNOSIS: CHEST PAIN CARDIAC HISTORY: CATHERIZATION: NO SURGERY: NO PROSTHETIC VALVE: NO PACEMAKER: NO MEASUREMENTS (cm) DIASTOLIC (NORMALS) SYSTOLIC (NORMALS) IVSd 1.1 (0.6-1.2) LA Diam 3.6 (1.9-4.0) LVEF 61% LVIDd 4.2 (3.5-5.7) LVIDs 2.8 (2.0-3.5) %FS 33% LVPWd 1.1 (0.6-1.2) Ao Diam 3.1 (2.0-3.7) 2 DIMENSIONAL ASSESSMENT: RIGHT ATRIUM: DILATED LEFT ATRIUM: NORMAL RIGHT VENTRICLE: DILATED LEFT VENTRICLE: NORMAL TRICUSPID VALVE: NORMAL MITRAL VALVE: NORMAL PULMONIC VALVE: NORMAL AORTIC VALVE: NORMAL PERICARDIAL EFFUSION: NONE AORTIC ROOT: NORMAL LEFT VENTRICULAR WALL MOTION: NORMAL. DOPPLER/COLOR FLOW: MILD TRICUSPID REGURGITATION. ESTIMATED RIGHT VENTRICULAR SYSTOLIC PRESSURE 50mmHg. NORMAL RIGHT ATRIAL PRESSURE 12mmHg. COMMENTS: NORMAL LEFT VENTRICULAR EJECTION FRACTION. DILATED LEFT AND RIGHT ATRIUM. MILD TRICUSPID REGURGITATION. MODERATE PULMONARY HYPERTENSION. TECHNOLOGIST: PHIL RODRIGUEZ
== END 2019-04-01 12:20 | disposition home or self-care (01) | DRG 176 ==
LOC: ER 12:38 → ERHOLD 13:47 → 2ND 15:00 → OBSVTOIN 03-31 13:28
PROVIDERS: ADMIT Family Medicine; ATTEND Family Medicine
DX: I26.09 Other pulmonary embolism with acute cor pulmonale (principal); F14.90 Cocaine use, unspecified, uncomplicated; F15.90 Other stimulant use, unspecified, uncomplicated; F12.90 Cannabis use, unspecified, uncomplicated; F20.9 Schizophrenia, unspecified; F17.210 Nicotine dependence, cigarettes, uncomplicated; I73.9 Peripheral vascular disease, unspecified; J44.9 Chronic obstructive pulmonary disease, unspecified; Z93.3 Colostomy status; Z85.038 Personal history of other malignant neoplasm of large intestine
CPT/HCPCS: 36415; 71045; 71275; 80048; 80061; 80076; 80307; 81003; 83735; 83880; 84484; 85025; 85610; 93005; 93306; 96372; 99285; G0378; J1650; J7512; J7606; Q9967

== ENCOUNTER 2019-08-12 16:20 | Emergency (ER) | payer OTHER ==
[2019-08-12 17:05] LABS: Absolute Lymphocytes (CBC) 1.3 K/uL (0.7-4.9); Basophils % 0.6 % (0-1.3); Hematocrit 42.8 % (39.6-49.0); Lymphocytes % 18.4 % (15.3-44.8); RBC Red Blood Cell Count 4.66 M/uL (4.33-5.43)
[2019-08-12 17:08] LABS: Protime INR 1.06
[2019-08-12 17:19] LABS: ALT/SGPT 27 U/L (12-78); AST/SGOT 19 U/L (15-37); Albumin 3.7 g/dL (3.4-5.0); Alkaline Phosphatase 128 U/L (45-117); BUN Blood Urea Nitrogen 12 mg/dL (7-18); Bicarbonate 28 mmol/L (21-32); Bilirubin Direct < 0.1 mg/dL (0-0.2); Bilirubin Total 0.2 mg/dL (0.2-1.0); Glucose Level 109 mg/dL (74-106); NT PRO-BNP 67 pg/mL (<125); Potassium 3.9 mmol/L (3.5-5.1); Protein, Total 7.2 g/dL (6.4-8.2); Sodium Level 141 mmol/L (136-145); Troponin (Emerg Dept Use Only) < 0.02 ng/mL (0.0-0.045)
[2019-08-12] MEDS ORDERED: ASPIRIN 81 MG CHEWABLE TABLET ONE (17:43)
--- NOTE | 2019-08-12 17:43 | RAD REPORT ---
EXAM DESCRIPTION: RAD - Chest Single View - 08/12/2019 5:01 pm CLINICAL HISTORY: Chest pain, shortness of breath COMPARISON: March 30 TECHNIQUE: AP portable chest image was obtained 1656 hours . FINDINGS: No focal lung parenchymal process. Lung markings similar to comparison. Right-sided Port-A -Cath remains in place. Heart and vasculature are normal. No measurable pleural effusion and no pneum othorax. No acute bony abnormality seen. No acute aortic findings suspected. IMPRESSION: No acute cardiopulmonary process. No significant interval change.
--- NOTE | 2019-08-12 19:56 | ER ---
Nurse's Notes [facility] Name: Markus Foy Age: 53 yrs Sex: Male : 1965 Arrival Date: 08/12/2019 Time: 16:22 Bed 4 Private MD: Diagnosis: Chest pain, unspecified Presentation: 08/12 16:30 Presenting complaint: Patient states: CHEST PAIN AND SOB x3 DAYS. Transition of care: bp patient was not received from another setting of care. Onset of symptoms is unknown. Risk Assessment: Do you want to hurt yourself or someone else? Patient reports no desire to harm self or others. Initial Sepsis Screen: Does the patient meet any 2 criteria? No. Patient's initial sepsis screen is negative. Does the patient have a suspected source of infection? No. Patient's initial sepsis screen is negative. Care prior to arrival: None. 16:30 Method Of Arrival: Ambulatory bp 16:30 Acuity: ZELDA 2 bp Triage Assessment: 16:55 General: Appears in no apparent distress. comfortable, Behavior is cooperative, bp appropriate for age, anxious. Pain: Complains of pain in chest. EENT: No deficits noted. Neuro: No deficits noted. Cardiovascular: Rhythm is sinus rhythm. Respiratory: Reports shortness of breath. GI: No signs and/or symptoms were reported involving the gastrointestinal system. : No signs and/or symptoms were reported regarding the genitourinary system. Derm: No deficits noted. Musculoskeletal: No deficits noted. Historical: - Allergies: 16:55 No Known Allergies; bp - Home Meds: 16:55 None [Active]; bp - PMHx: 16:55 Schizophrenia; Cancer; bp - Immunization history:: Adult Immunizations up to date. - Social history:: Smoking status: Patient uses tobacco products, unknown amount. - Ebola Screening: : No symptoms or risks identified at this time. Screenin:57 Abuse screen: Denies threats or abuse. Denies injuries from another. Nutritional bp screening: No deficits noted. Tuberculosis screening: No symptoms or risk factors identified. Fall Risk None identified. Assessment: 16:57 General: SEE TRIAGE NOTE. bp 17:38 Reassessment: NO S/S ACUTE DISTRESS, RESULTS PENDING FOR DISPO. bp 18:46 Reassessment: REPEAT ENZYMES DRAWN/SENT, RESULTS PENDING. bp 19:10 Reassessment: Patient appears in no apparent distress at this time. Patient and/or jb4 family updated on plan of care and expected duration. Pain level reassessed. Patient is alert, oriented x 3, equal unlabored respirations, skin warm/dry/pink. Patient states feeling better. 20:09 Reassessment: Patient appears in no apparent distress at this time. Patient and/or jb4 family updated on plan of care and expected duration. Pain level reassessed. Patient is alert, oriented x 3, equal unlabored respirations, skin warm/dry/pink. PT and friend verbalized understanding of d/c and follow up instructions. Pt assisted to vehicle via wheelchair. Vital Signs: 16:55 BP 128 / 79; Pulse 79; Resp 16; Temp 98; Pulse Ox 100% ; bp 17:39 BP 151 / 80; Pulse 79; Resp 16; Pulse Ox 100% ; bp 18:47 BP 151 / 101; Pulse 76; Resp 15; Pulse Ox 100% ; bp 19:30 BP 142 / 93; Pulse 75; Resp 16; Pulse Ox 100% on R/A; jb4 ED Course: 16:22 Patient arrived in ED. as 16:31 Shar Squires FNP-C [facility]. la1 16:31 Thomas Garvin MD is Attending Physician. la1 16:36 Charlie Freeman, ALFREDITO is Primary Nurse. bp 16:52 EKG done, by ED staff, reviewed by Shar FENG. Initial lab(s) drawn, by ri, sent jb1 to lab. Inserted saline lock: 22 gauge in right antecubital area, using aseptic technique. Blood collected. 16:55 Triage completed. bp 16:55 Arm band placed on. bp 16:57 Patient has correct armband on for positive identification. Bed in low position. Call bp light in reach. Side rails up X2. Pulse ox on. NIBP on. 17:02 XRAY Chest (1 view) In Process Unspecified. EDMS 19:00 Patient maintains SpO2 saturation greater than 95% on room air. jb4 20:09 No provider procedures requiring assistance completed. IV discontinued, intact, jb4 bleeding controlled, No redness/swelling at site. Pressure dressing applied. Administered Medications: 17:15 Drug: Aspirin Chewable Tablet 324 mg Route: PO; bp 17:40 Follow up: Response: No adverse reaction bp Outcome: 19:55 Discharge ordered by . laRia 20:11 Discharged to home ambulatory, with friend. jb4 20:11 Condition: stable 20:11 Discharge instructions given to patient, friend, Instructed on discharge instructions, follow up and referral plans. Demonstrated understanding of instructions, follow-up care. 20:11 Patient left the ED. jb4 Signatures: Dispatcher [employer] EDMS Adriel Almaraz jb1 Sarah Barron Lee, EVENTS AND PROMOTIONS ASSISTANT-C EVENTS AND PROMOTIONS ASSISTANT-Cla1 Syed Alexander, RN RN jb4 Charlie Freeman, ALFREDITO RN bp
--- NOTE | 2019-08-12 19:56 | EDPHYS ---
Physician Documentation [facility] Name: Markus Foy Age: 53 yrs Sex: Male : 1965 Arrival Date: 08/12/2019 Time: 16:22 Bed 4 Private MD: ED Physician Thomas Garvin HPI: 08/12 16:54 This 53 yrs old Male presents to ER via Unassigned with complaints of Chest la1 Pain, Shortness Of Breath. 16:54 The patient or guardian reports chest pain that is located primarily in the substernal la1 area, anterior chest wall. Onset: this morning. The pain does not radiate. Associated signs and symptoms: Pertinent positives: shortness of breath, Pertinent negatives: abdominal pain, dizziness, lightheadedness, nausea, near syncope, palpitations, syncope. The chest pain is described as dull. Duration: The patient or guardian reports multiple episodes, that have now resolved, that are intermittent, the episodes last approximately 1 hour(s). The patient has not experienced similar symptoms in the past. Pt reports that he has had a few episodes of chest pain and SOB that are brought on by exertion and relieved with rest, has been prescribed nitro but has not yet filled his prescription. . Historical: - Allergies: 16:55 No Known Allergies; bp - Home Meds: 16:55 None [Active]; bp - PMHx: 16:55 Schizophrenia; Cancer; bp - Immunization history:: Adult Immunizations up to date. - Social history:: Smoking status: Patient uses tobacco products, unknown amount. - Ebola Screening: : No symptoms or risks identified at this time. ROS: 16:55 Constitutional: Negative for fever, chills, and weight loss, Eyes: Negative for injury, la1 pain, redness, and discharge, ENT: Negative for injury, pain, and discharge, Neck: Negative for injury, pain, and swelling, Respiratory: Negative for shortness of breath, cough, wheezing, and pleuritic chest pain, Abdomen/GI: Negative for abdominal pain, nausea, vomiting, diarrhea, and constipation, Back: Negative for injury and pain, : Negative for injury, bleeding, discharge, and swelling, MS/Extremity: Negative for injury and deformity. 16:55 Cardiovascular: Positive for chest pain, with movement, exertional chest pain. 16:55 Respiratory: Positive for shortness of breath, on exertion. Exam: 16:56 Constitutional: This is a well developed, well nourished patient who is awake, alert, la1 and in no acute distress. Head/Face: Normocephalic, atraumatic. Eyes: Pupils equal round and reactive to light, extra-ocular motions intact. Periorbital areas with no swelling, redness, or edema. ENT: Mucous membranes moist. Neck: No Meningismus. Chest/axilla: Normal chest wall appearance and motion. Nontender with no deformity. No lesions are appreciated. Cardiovascular: Regular rate and rhythm with a normal S1 and S2. No gallops, murmurs, or rubs. Normal PMI, no JVD. No pulse deficits. Respiratory: Lungs have equal breath sounds bilaterally, clear to auscultation No rales, rhonchi or wheezes noted. No increased work of breathing, no retractions or nasal flaring. Abdomen/GI: Soft, non-tender, with normal bowel sounds. No distension or tympany. No guarding or rebound. No evidence of tenderness throughout. Back: No spinal tenderness. No costovertebral tenderness. Full range of motion. MS/ Extremity: Pulses equal, no cyanosis. Neurovascular intact. Full, normal range of motion. Neuro: Awake and alert, GCS 15, oriented to person, place, time, and situation. Normal gait. Psych: Awake, alert, with orientation to person, place and time. Behavior, mood, and affect are within normal limits. 16:59 ECG was reviewed by the Attending Physician. la1 17:03 Abdomen/GI: Inspection: abdomen appears normal, Bowel sounds: normal, Palpation: la1 abdomen is soft and non-tender, in all quadrants, colonostomy present without surrounding redness, swelling, or drainage.. Vital Signs: 16:55 BP 128 / 79; Pulse 79; Resp 16; Temp 98; Pulse Ox 100% ; bp 17:39 BP 151 / 80; Pulse 79; Resp 16; Pulse Ox 100% ; bp 18:47 BP 151 / 101; Pulse 76; Resp 15; Pulse Ox 100% ; bp 19:30 BP 142 / 93; Pulse 75; Resp 16; Pulse Ox 100% on R/A; jb4 MDM: 16:31 Patient medically screened. la1 19:51 Differential diagnosis: abnormal EKG, acute myocardial infarction, acute pericarditis, la1 anxiety, coronary artery disease chest wall pain, congestive heart failure gastroesophageal reflux disease (GERD). The patient was given aspirin in the Emergency Department. Data reviewed: vital signs, nurses notes, lab test result(s), EKG, radiologic studies, plain films, I have discussed the patient's presentation/case with the attending Emergency Department Physician; and as a result, I will discharge patient. Data interpreted: Pulse oximetry: on room air is 100 %. Interpretation: normal. Counseling: I had a detailed discussion with the patient and/or guardian regarding: the historical points, exam findings, and any diagnostic results supporting the discharge/admit diagnosis, lab results, radiology results, the need for outpatient follow up, a chiropractor, to return to the emergency department if symptoms worsen or persist or if there are any questions or concerns that arise at home. ED course: Pt chest pain free during ED stay, has RX for nitro that he has not picked up from the pharmacy. 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 Henry, story is consistent with angina. Has had two negative troponins and a normal CXR/EKG. . 08/12 16:39 Order name: Basic Metabolic Panel; Complete Time: 17:24 la1 08/12 16:39 Order name: CBC with Diff; Complete Time: 17:17 la1 08/12 16:39 Order name: LFT's; Complete Time: 17:24 la1 08/12 16:39 Order name: Magnesium; Complete Time: 17:24 la1 08/12 16:39 Order name: NT PRO-BNP; Complete Time: 17:24 la1 08/12 16:39 Order name: PT-INR; Complete Time: 17:17 la08/12 16:31 Order name: EKG; Complete Time: 16:32 la1 08/12 16:31 Order name: EKG - Nurse/Tech; Complete Time: 16:38 la1 08/12 16:39 Order name: Troponin (emerg Dept Use Only); Complete Time: 17:24 la1 08/12 16:39 Order name: XRAY Chest (1 view); Complete Time: 17:49 la1 08/12 17:05 Order name: D-Dimer; Complete Time: 17:17 EDTX 08/12 18:38 Order name: Troponin (emerg Dept Use Only); Complete Time: 19:19 la1 08/12 16:39 Order name: Cardiac monitoring; Complete Time: 16:39 la1 08/12 16:39 Order name: EKG - Nurse/Tech; Complete Time: 16:40 la1 08/12 16:39 Order name: IV Saline Lock; Complete Time: 16:53 la1 08/12 16:39 Order name: Labs collected and sent; Complete Time: 16:53 la1 08/12 16:39 Order name: O2 Per Protocol; Complete Time: 16:40 la1 08/12 16:39 Order name: O2 Sat Monitoring; Complete Time: 16:40 la1 08/12 18:40 Order name: Labs - recollect needed: repeat troponin now; Complete Time: 18:46 iw EC:59 Rate is 83 beats/min. Rhythm is regular. QRS Alexander is Normal. VT interval is normal. QRS la1 interval is normal. QT interval is normal. No Q waves. T waves are Normal. No ST changes noted. Clinical impression: No STEMI, occaisonal OVC. Interpreted by me. Reviewed by me. Administered Medications: 17:15 Drug: Aspirin Chewable Tablet 324 mg Route: PO; bp 17:40 Follow up: Response: No adverse reaction bp Disposition: 08/13 08:54 Co-signature as Attending Physician, Thomas Garvin MD I agree with the assessment and kdr plan of care. Disposition: 08/12/19 19:55 Discharged to Home. Impression: Chest pain, unspecified. - Condition is Stable. - Discharge Instructions: Nonspecific Chest Pain, Aspirin and Your Heart. - Medication Reconciliation Form, Thank You Letter form. - Follow up: Private Physician; When: 2 - 3 days; Reason: Recheck today's complaints, Re-evaluation by your physician. Follow up: Emergency Department; When: As needed; Reason: Worsening of condition. Signatures: Dispatcher [employer] Thomas Burrell MD MD kdr Williams, Irene RN RN iw Shar Squires, THEATRICAL RIGGER-C THEATRICAL RIGGER-Cla1 Syed Alexander, RN RN jb4 Charlie Freeman RN RN bp Corrections: (The following items were deleted from the chart) 08/12 17:04 16:50 D-DIMER+COAG.LAB.BRZ ordered. [facility] EDMS 20:11 19:55 08/12/2019 19:55 Discharged to Home. Impression: Chest pain, unspecified. jb4 Condition is Stable. Forms are Medication Reconciliation Form, Thank You Letter, Antibiotic Education, Prescription Opioid Use. Follow up: Private Physician; When: 2 - 3 days; Reason: Recheck today's complaints, Re-evaluation by your physician. Follow up: Emergency Department; When: As needed; Reason: Worsening of condition. la1
[2019-08-12 23:00] VITALS: TEMP 98; O2SAT 100
[2019-08-12 23:04] VITALS: BP 142/93
--- NOTE | 2019-08-13 07:38 | EKG ---
Test Date: 2019-08-12 Test Time: 16:37:41 Hot Patcher: SWG MEASUREMENT RESULTS: Intervals: Rate: 83 CA: 146 QRSD: 82 QT: 368 QTc: 432 Armbrust: P: 69 CA: 146 QRS: 68 T: 78 INTERPRETIVE STATEMENTS: Sinus rhythm with occasional premature atrial complexes Otherwise normal ECG Compared to ECG 03/30/2019 13:07:32 no significant change from previous ECG Electronically Signed On 08-13-19 07:38:39 SUPERVISOR OF COMMUNICATIONS by Bj Henry
== END 2019-08-12 20:11 | disposition home or self-care (01) ==
LOC: ER 16:20
DX: R07.9 Chest pain, unspecified (principal); Z72.0 Tobacco use
CPT/HCPCS: 36415; 71045; 80048; 80076; 83735; 83880; 84484; 85025; 85379; 85610; 93005; 99285

== ENCOUNTER 2021-01-04 18:43 | Emergency (ER) | payer OTHER ==
--- OUTSIDE RECORDS SUMMARY | 2021-01-04 18:46 | XMS REPORT | Continuity of Care Document ---
:1965 Author Organization [facility] Address [address] [place] [address] Dr. Nelson [address] [place] [id number] Care Team Providers Name Role Phone Unavailable Unavailable Unavailable Problems This patient has no known problems. Allergies, Adverse Reactions, Alerts This patient has no known allergies or adverse reactions. Medications This patient has no known medications. Procedures This patient has no known procedures. Results This patient has no known results.
[2021-01-04] MEDS ORDERED: TETRACAINE HCL 0.5% 4ML OPTH ONE (19:41)
[2021-01-04] MEDS ORDERED: FLUORESCEIN SODIUM 1 MG/WRAP ONE (19:41)
[2021-01-04] MEDS ORDERED: HYDROCODONE/APAP 5/325 MG TAB ONE (19:41)
--- NOTE | 2021-01-04 20:44 | RAD REPORT ---
EXAM DESCRIPTION: CT - CTF CLINICAL HISTORY: eye trauma Pain and swelling COMPARISON: No comparisons TECHNIQUE: Axial 2 mm thick images of the face were obtained with sagittal and coronal reconstructio n images. All CT scans are performed using dose optimization technique as appropriate and may include automated exposure control or mA/KV adjustment according to patient size. FINDINGS: No acute facial bone fracture is seen.The mandible is intact. The globes and orbital contents are grossly unremarkable.The paranasal sinuses and mastoids are clear . No radiopaque foreign body identified. IMPRESSION: No acute abnormality is detected.
[2021-01-04] MEDS ORDERED: HYDROCODONE/APAP 7.5/325 MG TAB ONE (22:06)
--- NOTE | 2021-01-04 22:22 | EDPHYS ---
Physician Documentation [facility] Name: Markus Foy Age: 55 yrs Sex: Male : 1965 Arrival Date: 01/04/2021 Time: 18:44 Bed 15 Private MD: ED Physician Branden Torres HPI: 01/04 19:34 This 55 yrs old Male presents to ER via Ambulatory with complaints of Eye mh7 Injury - flying rock hit eye. 19:34 The patient sustained contusion, to the right eye, caused by Rock hit eye while cutting mh7 grass. Onset: The symptoms/episode began/occurred just prior to arrival, today. Duration: the symptoms are continuous. Aggravated by nothing. Alleviated by nothing. Associated signs and symptoms: Pertinent negatives: chills, dizziness, ear ache, fever, headache, runny nose. Patient wears glasses. Severity of symptoms: At their worst the symptoms were moderate today, in the emergency department the symptoms are unchanged. Historical: - Allergies: 19:00 No Known Allergies; ca1 - PMHx: 19:00 Cancer; Schizophrenia; ca1 - PSHx: 19:00 Colostomy; ca1 - Immunization history:: Flu vaccine is up to date. - Social history:: Smoking status: Patient reports the use of cigarette tobacco products, smokes one-half pack cigarettes per day. ROS: 19:34 Constitutional: Negative for fever, chills, and weight loss, ENT: Negative for injury, mh7 pain, and discharge, Neck: Negative for injury, pain, and swelling, Cardiovascular: Negative for chest pain, palpitations, and edema, Respiratory: Negative for shortness of breath, cough, wheezing, and pleuritic chest pain, Abdomen/GI: Negative for abdominal pain, nausea, vomiting, diarrhea, and constipation, Back: Negative for injury and pain, : Negative for injury, bleeding, discharge, and swelling, MS/Extremity: Negative for injury and deformity, Skin: Negative for injury, rash, and discoloration, Neuro: Negative for headache, weakness, numbness, tingling, and seizure, Psych: Negative for depression, anxiety, suicide ideation, homicidal ideation, and hallucinations, Allergy/Immunology: Negative for hives, rash, and allergies, Endocrine: Negative for neck swelling, polydipsia, polyuria, polyphagia, and marked weight changes, Hematologic/Lymphatic: Negative for swollen nodes, abnormal bleeding, and unusual bruising. Exam: 19:34 Constitutional: This is a well developed, well nourished patient who is awake, alert, mh7 and in no acute distress. Head/Face: Normocephalic, atraumatic. Neck: Trachea midline, no thyromegaly or masses palpated, and no cervical lymphadenopathy. Supple, full range of motion without nuchal rigidity, or vertebral point tenderness. No Meningismus. Chest/axilla: Normal chest wall appearance and motion. Nontender with no deformity. No lesions are appreciated. Cardiovascular: Regular rate and rhythm with a normal S1 and S2. No gallops, murmurs, or rubs. Normal PMI, no JVD. No pulse deficits. Respiratory: Lungs have equal breath sounds bilaterally, clear to auscultation and percussion. No rales, rhonchi or wheezes noted. No increased work of breathing, no retractions or nasal flaring. Abdomen/GI: Soft, non-tender, with normal bowel sounds. No distension or tympany. No guarding or rebound. No evidence of tenderness throughout. Back: No spinal tenderness. No costovertebral tenderness. Full range of motion. Skin: Warm, dry with normal turgor. Normal color with no rashes, no lesions, and no evidence of cellulitis. MS/ Extremity: Pulses equal, no cyanosis. Neurovascular intact. Full, normal range of motion. Neuro: Awake and alert, GCS 15, oriented to person, place, time, and situation. Cranial nerves II-XII grossly intact. Motor strength 5/5 in all extremities. Sensory grossly intact. Cerebellar exam normal. Normal gait. Psych: Awake, alert, with orientation to person, place and time. Behavior, mood, and affect are within normal limits. 22:21 Visual Acuity: I have reviewed the nursing documentation. [facility] 22:21 Eyes: Periorbital structures: appear normal, Pupils: irregularly shaped, in the right eye, Extraocular movements: intact throughout, Conjunctiva: injected, in the right eye, Corneas: a fluorescein strip employed to appreciate the findings, right small laceration \T\ 3 O' clock position, Sclera: small laceration \T\ 3 o' clock position, Anterior chamber: no slit lamp available. Lids and lashes: appear normal, funduscopic exam reveals no obvious abnormalities, Visual santo: are intact, Nystagmus: is not appreciated, Intraocular pressure: no measurement instrument available. Vital Signs: 18:57 BP 126 / 84; Pulse 88; Resp 19 S; Temp 97.1(TE); Pulse Ox 99% on R/A; Weight 83.91 kg ca1 (R); Height 6 ft. 0 in. (182.88 cm) (R); Pain 5/10; 21:30 BP 141 / 96; Pulse 66; Resp 16; Pulse Ox 100% on R/A; zb 22:19 BP 126 / 89; Pulse 80; Resp 18; Pulse Ox 97% on R/A; zb 23:34 BP 124 / 84; Pulse 78; Resp 16; Pulse Ox 100% on R/A; zb 18:57 Body Mass Index 25.09 (83.91 kg, 182.88 cm) ca1 Visual Acuity: 22:24 Left Eye Visual acuity 20/25, Normal, React To Light, Reactive To Accomodation; Right zb Eye Visual acuity 20/200, Irregular, Non Reactive; Both Eyes Visual acuity 20/25; Without Lenses; MDM: 22:18 Differential diagnosis: Corneal abrasion of right eye. Corneal ulcer of right eye. 7 Foreign body in right eye. Acute iritis of right eye. Corneal laceration, scleral laceration, ruptured globe. Data reviewed: vital signs, nurses notes, radiologic studies, CT scan. Data interpreted: Pulse oximetry: on room air is 97 %. Interpretation: normal. Counseling: I had a detailed discussion with the patient and/or guardian regarding: the historical points, exam findings, and any diagnostic results supporting the discharge/admit diagnosis, radiology results, the need to transfer to another facility, for higher level of care, [facility] does not immediately have the required specialist. Response to treatment: the patient's symptoms have mildly improved after treatment. 22:[address] [facility] 01/04 22:15 Order name: CBC with Diff [facility] 01/04 22:15 Order name: Basic Metabolic Panel [facility] 01/04 22:15 Order name: LFT's [facility] 01/04 22:15 Order name: Protime (+inr) [facility] 01/04 22:15 Order name: Ptt, Activated [facility] 01/04 19:17 Order name: Fluoresene Opth strip; Complete Time: 19:24 [facility] 01/04 19:35 Order name: Maxillofacial Wo Con; Complete Time: 21:04 EDMS 01/04 22:15 Order name: Saline Lock; Complete Time: 22:36 [facility] Administered Medications: 19:27 Drug: [place] (HYDROcodone-acetaminophen) 5 mg-325 mg 1 tabs Route: PO; zb 20:20 Follow up: Response: No adverse reaction; Pain is decreased; RASS: Alert and Calm (0) zb 19:28 Drug: Tetracaine Drops 0.5 % 1 drops {Note: Admistered by MD .} Route: Ophthalmic; zb Site: right eye; Disposition: 01/04/21 22:21 Transfer ordered to [facility]. Diagnosis are Scleral laceration, Right Eye, Corneal Laceration, Right Eye. - Reason for transfer: Higher level of care. - Accepting physician is Dr. Myles. - Condition is Stable. - Problem is new. - Symptoms have improved. Signatures: Dispatcher [employer] EDAK Elsie Alvarado RN RN ca1 Branden Torres MD MD [facility] Chitra Santiago RN RN zb Corrections: (The following items were deleted from the chart) 19:35 19:32 Maxillofacial W/Wo ordered. EDAK EDMS 23:51 22:21 01/04/2021 22:21 Transfer ordered to [facility]. Diagnosis is zb Scleral laceration, Right Eye; Corneal Laceration, Right Eye. Reason for transfer: Higher level of care. Accepting physician is Dr. Myles. Condition is Stable. Problem is new. Symptoms have improved. [facility]
--- NOTE | 2021-01-04 22:22 | ER ---
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 Tearing on R eye, reports blurring of vision and pain on R eye. Coronavirus screen: Client denies travel out of the [place] in the last 14 days. At this time, the client does not indicate any symptoms associated with coronavirus-19. Ebola Screen: Patient negative for fever greater than or equal to 101.5 degrees Fahrenheit, and additional compatible Ebola Virus Disease symptoms Patient denies exposure to infectious person. Patient denies travel to an Ebola-affected area in the 21 days before illness onset. No symptoms or risks identified at this time. Initial Sepsis Screen: Does the patient meet any 2 criteria? No. Patient's initial sepsis screen is negative. Does the patient have a suspected source of infection? No. Patient's initial sepsis screen is negative. Risk Assessment: Do you want to hurt yourself or someone else? Patient reports no desire to harm self or others. Onset of symptoms was January 04, 2021. 18:57 Method Of Arrival: Ambulatory ca1 18:57 Acuity: ZELDA 2 ca1 22:24 Mechanism of Injury: rock hit eye. The patient reports a positive loss of vision. The zb patient's loss of vision began suddenly today. Historical: - Allergies: 19:00 No Known Allergies; ca1 - PMHx: 19:00 Cancer; Schizophrenia; ca1 - PSHx: 19:00 Colostomy; ca1 - Immunization history:: Flu vaccine is up to date. - Social history:: Smoking status: Patient reports the use of cigarette tobacco products, smokes one-half pack cigarettes per day. Screenin:23 Abuse screen: Denies threats or abuse. Denies injuries from another. Nutritional zb screening: No deficits noted. Tuberculosis screening: No symptoms or risk factors identified. Fall Risk None identified. Assessment: 21:30 General: Appears. zb 21:30 General: Appears uncomfortable, Behavior is calm, cooperative. Pain: Complains of pain zb in right eye Pain does not radiate. Pain currently is 9 out of 10 on a pain scale. Neuro: Level of Consciousness is awake, alert, obeys commands, Oriented to person, place, time, situation, right pupil irregular and sluggish. Reports blurred vision in right eye photophobia in right eye. Cardiovascular: No deficits noted. Respiratory: No deficits noted. GI: No deficits noted. : No deficits noted. No signs and/or symptoms were reported regarding the genitourinary system. EENT: Eyes are tearing on right eye redness, tear, non-reactiving pupil with non- round appearance. . Sclera/Cornea are reddened in right eye. Derm: Skin is intact, is healthy with good turgor. Musculoskeletal: Circulation, motion, and sensation intact. Range of motion:. 22:30 Reassessment: Patient appears in no apparent distress at this time. Patient and/or zb family updated on plan of care and expected duration. Pain level reassessed. Patient is alert, oriented x 3, equal unlabored respirations, skin warm/dry/pink. ecp has been at bedside discussing care with patient. pain remains in pain. lights dimmed for comfort. 23:15 Reassessment: pt advised to be npo for transfer. zb 23:30 Reassessment: Patient appears in no apparent distress at this time. Patient and/or zb family updated on plan of care and expected duration. Pain level reassessed. Patient is alert, oriented x 3, equal unlabored respirations, skin warm/dry/pink. patient really for d/c. report given to EMS. pain reduced with dimmed lights. Vital Signs: 18:57 BP 126 / 84; Pulse 88; Resp 19 S; Temp 97.1(TE); Pulse Ox 99% on R/A; Weight 83.91 kg ca1 (R); Height 6 ft. 0 in. (182.88 cm) (R); Pain 5/10; 21:30 BP 141 / 96; Pulse 66; Resp 16; Pulse Ox 100% on R/A; zb 22:19 BP 126 / 89; Pulse 80; Resp 18; Pulse Ox 97% on R/A; zb 23:34 BP 124 / 84; Pulse 78; Resp 16; Pulse Ox 100% on R/A; zb 18:57 Body Mass Index 25.09 (83.91 kg, 182.88 cm) ca1 Visual Acuity: 22:24 Left Eye Visual acuity 20/25, Normal, React To Light, Reactive To Accomodation; Right zb Eye Visual acuity 20/200, Irregular, Non Reactive; Both Eyes Visual acuity 20/25; Without Lenses; ED Course: 18:44 Patient arrived in ED. as 18:59 Triage completed. ca1 19:00 Arm band placed on right wrist. ca1 19:07 Branden Torres MD is Attending Physician. mh7 19:08 Chitra Santiago, ALFREDITO is Primary Nurse. zb 20:33 Maxillofacial Wo Con In Process Unspecified. EDMS 22:07 initiated a transfer with Belkys Daniel from [facility]. [facility] 22:13 administrative approval given by Belkys Daniel/ patient has been accepted to [address] Emergency Department/ Dr. Myles accepted the patient in transfer/ report to be called to [phone]. 22:23 No provider procedures requiring assistance completed. zb 22:26 Patient has correct armband on for positive identification. Placed in gown. Bed in low zb position. Pulse ox on. NIBP on. 22:36 Inserted saline lock: 20 gauge in left antecubital area, using aseptic technique. Blood zb collected. 23:30 Patient transferred, IV remains in place. zb Administered Medications: 19:27 Drug: Voca (HYDROcodone-acetaminophen) 5 mg-325 mg 1 tabs Route: PO; zb 20:20 Follow up: Response: No adverse reaction; Pain is decreased; RASS: Alert and Calm (0) zb 19:28 Drug: Tetracaine Drops 0.5 % 1 drops {Note: Admistered by MD .} Route: Ophthalmic; zb Site: right eye; Outcome: 22:21 ER care complete, transfer ordered by . mh7 23:30 Transferred by ground EMS to [facility]. zb 23:30 Condition: stable 23:30 Discharge instructions given to patient, Instructed on the need for transfer, Demonstrated understanding of instructions. 23:51 Patient left the ED. zb Signatures: Dispatcher [employer] Sarah Gee MyKena mw2 Elsie Alvarado RN RN ca1 Branden Torres MD MD 7 Chitra Santiago RN RN zb Corrections: (The following items were deleted from the chart) 22:23 21:30 Neuro: Level of Consciousness is awake, alert, obeys commands, Oriented to zb person, place, time, situation, right pupil irregular and sluggish. zhedy 01/05 12:04 05 23:30 Transferred by ground EMS robert jones
[2021-01-04 22:55] LABS: Absolute Lymphocytes (CBC) 1.7 K/uL (0.7-4.9); Basophils % 0.4 % (0-1.3); Lymphocytes % 23.5 % (15.3-44.8); RBC Red Blood Cell Count 5.37 M/uL (4.33-5.43)
[2021-01-04 23:04] LABS: Protime INR 1.13
[2021-01-04 23:12] LABS: Albumin 4.3 g/dL (3.4-5.0); Bilirubin Direct 0.2 mg/dL (0-0.2); Bilirubin Total 0.7 mg/dL (0.2-1.0); Potassium 3.8 mmol/L (3.5-5.1); Protein, Total 8.2 g/dL (6.4-8.2)
[2021-01-04 23:57] VITALS: TEMP 97.1
[2021-01-04 23:59] VITALS: BP 126/89; O2SAT 97
== END 2021-01-04 23:51 | disposition short-term general hospital (02) ==
LOC: ER 18:43
DX: S05.31XA Ocular laceration without prolapse or loss of intraocular tissue, right eye, initial encounter (principal); F17.210 Nicotine dependence, cigarettes, uncomplicated; F20.9 Schizophrenia, unspecified; Z93.3 Colostomy status; W20.8XXA Other cause of strike by thrown, projected or falling object, initial encounter
CPT/HCPCS: 36415; 70486; 80048; 80076; 85025; 85610; 85730; 99285